=== PATIENT | male | born 1990 | race Caucasian/White ===

== ENCOUNTER 2016-07-22 20:46 | Emergency (ER) | payer OTHER ==
[~2016-07-22] VITALS: Ht 188 cm; Wt 66.0 kg
[2016-07-22 20:49] VITALS: BP 124/77; PULSE 79; RESP 18; TEMP 99.1; O2SAT 97
[2016-07-22] MEDS ORDERED: CYCL1TAB29 PO (21:02)
[2016-07-22] MEDS ORDERED: IBUP800T23 PO (21:02)
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
== END 2016-07-22 21:26 | disposition home or self-care (01) ==
LOC: PHEFT 20:46
DX: M62.830 Muscle spasm of back (principal); S39.012A Strain of muscle, fascia and tendon of lower back, initial encounter; M79.604 Pain in right leg; V89.2XXA Person injured in unspecified motor-vehicle accident, traffic, initial encounter; Y92.410 Unspecified street and highway as the place of occurrence of the external cause
CPT/HCPCS: 99283